=== PATIENT | female | born 1955 | race Caucasian/White ===

== ENCOUNTER → 2017-03-10 | Outpatient (CLI) | payer BC ==
[2017-03-10 16:40] LABS: THYROXINE (T4) TOTAL 10.2 ug/dl (4.8-13.9)
[2017-03-10 16:45] LABS: THYROID STIM HORMONE (HS) 0.73 uIU/ml (0.358-4.75)
== END | disposition home or self-care (01) ==
LOC: LAB 15:54
PROVIDERS: Family Medicine
DX: E03.9 Hypothyroidism, unspecified (principal)

== ENCOUNTER 2018-04-19 20:19 | Emergency (ER) | payer BC ==
[~2018-04-19] VITALS: Wt 104.3 kg
[2018-04-19] MEDS ORDERED: CLINDAMYCIN HC300 MG PO (20:44)
[2018-04-19] MEDS ORDERED: DIFLUCAN150 MG PO (21:20)
== END 2018-04-19 21:03 | disposition home or self-care (01) ==
LOC: ED 20:19
DX: S61.012A Laceration without foreign body of left thumb without damage to nail, initial encounter (principal); Z88.0 Allergy status to penicillin; Z88.2 Allergy status to sulfonamides; W45.8XXA Other foreign body or object entering through skin, initial encounter; Y93.G3 Activity, cooking and baking; Y92.89 Other specified places as the place of occurrence of the external cause; Y99.8 Other external cause status

== ENCOUNTER → 2018-12-07 | Outpatient (CLI) | payer BC ==
[~2018-12-07] MED LIST: CLINDAMYCIN HC300 MG PO; DIFLUCAN150 MG PO
== END | disposition home or self-care (01) ==
LOC: RAD 06:39
DX: M50.322 Other cervical disc degeneration at C5-C6 level (principal); M50.822 Other cervical disc disorders at C5-C6 level; N20.0 Calculus of kidney; N20.1 Calculus of ureter; R20.2 Paresthesia of skin

== ENCOUNTER → 2022-07-19 | Outpatient (CLI) | payer BC ==
[2022-07-19 10:09] LABS: BASO % 0.9 % (0.0-1.0); EOS # 0.1 10*3/uL (0.0-0.4); EOS % 2.6 % (1.0-4.0); LYMPH # 1.4 10*3/uL (1.3-4.4); LYMPH % 29.2 % (27.0-41.0); MEAN CELL VOLUME 88.9 fl (81.0-99.0); MEAN CORPUSCULAR HGB 29.5 pg (27.0-31.0); MEAN CORPUSCULAR HGB CONC 33.2 g/dl (33.0-37.0); MEAN PLATELET VOLUME 10.2 fl (9.6-12.3); MONO # 0.4 10*3/uL (0.1-1.0); MONO % 8.9 % (3.0-9.0); NEUT # 2.7 10*3/uL (2.3-7.9); NEUT % 58.2 % (47.0-73.0); PLATELET COUNT AUTOMATED 209 10*3/uL (130-400); RED BLOOD COUNT 4.95 10*6/uL (4.10-5.10); RED CELL DISTRI WIDTH 13.2 % (0-14.5); WHITE BLOOD COUNT 4.6 10*3/uL (4.8-10.8)
[2022-07-19 10:31] LABS: BUN 13 mg/dl (7-24); CHLORIDE 105 mmol/L (98-107); CHOLESTEROL 214 mg/dL (<200); CREATININE 0.75 mg/dL (0.55-1.02); POTASSIUM 4.1 mmol/L (3.5-5.1); SGOT/AST 22 IU/L (3-35); SGPT/ALT 35 U/L (12-78); SODIUM 138 mmol/L (136-145)
[2022-07-19 10:39] LABS: ALKALINE PHOSPHATASE 69 U/L (45-117); THYROXINE (T4) TOTAL 8.9 ug/dl (4.8-13.9); TOTAL PROTEIN 7.8 gm/dL (6.4-8.2); TRIGLYCERIDES 404 mg/dl (<150)
[2022-07-20 04:06] LABS: DHEA SULFATE 86.9 ug/dL (20.4-186.6); PROGESTERONE 0.1 ng/mL (.); SEX HORMONE BINDING GLOBULIN 37.8 nmol/L (17.3-125.0)
[2022-07-21 06:07] LABS: HUMAN GROWTH HORMONE 0.3 ng/mL (0.0-10.0)
[2022-07-22 10:07] LABS: TESTOSTERONE FREE, (DIRECT) 1.3 pg/mL (0.0-4.2)
== END | disposition home or self-care (01) ==
LOC: LAB 09:04
PROVIDERS: ATTEND Family Medicine
DX: E88.81 Metabolic syndrome and other insulin resistance (principal); N95.1 Menopausal and female climacteric states